=== PATIENT | male | born 1975 | race Caucasian/White ===

== ENCOUNTER 2020-04-30 11:13 | Day surgery (SDC) | payer MEDICARE, OTHER ==
[2020-04-29 13:35] VITALS: BMI 33.2
[2020-04-30] MEDS ORDERED: LACTATED RINGERS 1,000 ML IV SCH (11:22)
[2020-04-30] MEDS ORDERED: LIDOCAINE 1% (10MG/ML) FOR IV START INTRADERMA PRN (11:22)
[2020-04-30 11:24] VITALS: TEMP 98.4
[2020-04-30] MEDS ORDERED: LACTATED RINGERS 1,000 ML IV ONE (11:26)
[2020-04-30] MEDS ORDERED: PROPOFOL 10 MG/ML 20 ML VIAL IV ONE (13:46)
[2020-04-30] MEDS ORDERED: SODIUM CHLORIDE 0.9% 500 ML 500 ML IV ONE (14:13)
--- NOTE | 2020-04-30 14:22 | P.PCN ---
Date of Procedure: 04/30/20 Description of Procedure: BRIEF HISTORY: Patient is a 44-year-old male presenting for outpatient colonoscopy for evaluation of change in bowel habits. Patient has a seven-year history of abdominal pain and upset stomach describes as intermittent periumbilical cramping and stabbing in nature. He also reports problems with constipation with straining and incomplete evacuation with bowel movements. PROCEDURE PERFORMED: Colonoscopy with polypectomy and biopsy. PREOPERATIVE DIAGNOSIS: Change in bowel habits. ESTIMATED BLOOD LOSS: Minimal. IV sedation per Anesthesia. PROCEDURE: After informed consent was obtained, the patient, was brought into the endoscopy unit. IV sedation was administered by Anesthesia under continuous monitoring. Digital rectal examination was normal. Initially the Olympus CF-190 flexible video colonoscope was then inserted in the rectum, gradually advanced into the cecum without any difficulty. Careful examination was performed as the scope was gradually being withdrawn. Ileocecal valve and the appendiceal orifice were visualized and appeared normal. The terminal ileum was intubated with findings of multiple superficial ulcers in the distal 10 cm of the ileum with biopsies taken. Prep was excellent. Mucosa of the cecum, ascending colon, transverse colon, descending colon, sigmoid colon, and rectum appeared normal. Multiple diverticula noted throughout the colon. Random biopsies taken of the right colon, transverse colon, left colon and rectum in the setting of altered bowel function. 2 small polyps measuring 3 and 4 mm removed from the transverse colon and sigmoid colon with cold snare polypectomy. Retroflexion was performed in the rectum and no lesions were seen. The patient tolerated the procedure well. IMPRESSION: Moderate ileitis. Small polyps removed with cold snare polypectomy from the transverse colon and sigmoid colon. Mild pandiverticulosis. Random biopsies taken of the terminal ileum, right colon, transverse colon, left colon and rectum given altered bowel function. RECOMMENDATIONS: Findings of this examination were discussed with the patient . Okay to resume diet. Okay to resume medications. Await pathology from biopsies. Patient has an appointment in 2 weeks with the GI clinic for follow-up of sym ptoms and to discuss results from biopsies as well as further management..
[2020-04-30 14:26] VITALS: RESP 20
[2020-04-30 14:40] VITALS: BP 134/71; PULSE 70
== END 2020-04-30 14:50 | disposition home or self-care (01) ==
LOC: ORWHC2ENDO 11:13
PROVIDERS: ATTEND Internal Medicine
DX: D12.3 Benign neoplasm of transverse colon (principal); D12.5 Benign neoplasm of sigmoid colon; K52.9 Noninfective gastroenteritis and colitis, unspecified; K57.30 Diverticulosis of large intestine without perforation or abscess without bleeding; K63.3 Ulcer of intestine; K30 Functional dyspepsia; K59.00 Constipation, unspecified; K21.9 Gastro-esophageal reflux disease without esophagitis; F17.210 Nicotine dependence, cigarettes, uncomplicated; Z90.89 Acquired absence of other organs
CPT/HCPCS: 45385; 45380; 88305; J2704